=== PATIENT | female | born 1960 | race Two or more races ===

== ENCOUNTER 2019-10-20 07:58 | Outpatient (CLI) | payer OTHER ==
[~2019-10-20 07:58] MED LIST: ANTIVERT25 M1 PO; CEFADROXIL500 MG PO; DIOVAN HCT 320/1 TAB; EFFEXOR XR75 MG; GLUMETZA1000 MG; SYNTHROID175 MCG
== END 2019-10-20 08:15 | disposition home or self-care (01) ==
LOC: LAB 07:58
PROVIDERS: ATTEND Internal Medicine Hematology & Oncology
DX: M06.09 Rheumatoid arthritis without rheumatoid factor, multiple sites (principal); R76.0 Raised antibody titer; R68.89 Other general symptoms and signs; I11.9 Hypertensive heart disease without heart failure; E78.00 Pure hypercholesterolemia, unspecified; E03.8 Other specified hypothyroidism; R31.29 Other microscopic hematuria; D50.8 Other iron deficiency anemias; D68.8 Other specified coagulation defects; D68.0 Von Willebrand disease; D50.0 Iron deficiency anemia secondary to blood loss (chronic); D51.1 Vitamin B12 deficiency anemia due to selective vitamin B12 malabsorption with proteinuria; D51.0 Vitamin B12 deficiency anemia due to intrinsic factor deficiency; C73 Malignant neoplasm of thyroid gland; E08.65 Diabetes mellitus due to underlying condition with hyperglycemia; J39.0 Retropharyngeal and parapharyngeal abscess; R92.0 Mammographic microcalcification found on diagnostic imaging of breast; Z12.31 Encounter for screening mammogram for malignant neoplasm of breast; R97.8 Other abnormal tumor markers; R94.5 Abnormal results of liver function studies

== ENCOUNTER 2019-10-20 11:41 | Outpatient (CLI) | payer OTHER | END 2019-10-20 11:54 | disposition home or self-care (01) | LOC: MAMO-SONO 11:41 | PROVIDERS: ATTEND Internal Medicine Hematology & Oncology | DX: Z12.31 Encounter for screening mammogram for malignant neoplasm of breast (principal); D50.0 Iron deficiency anemia secondary to blood loss (chronic); D51.0 Vitamin B12 deficiency anemia due to intrinsic factor deficiency; D51.1 Vitamin B12 deficiency anemia due to selective vitamin B12 malabsorption with proteinuria; C73 Malignant neoplasm of thyroid gland; E08.65 Diabetes mellitus due to underlying condition with hyperglycemia; I10 Essential (primary) hypertension; J39.8 Other specified diseases of upper respiratory tract; R92.0 Mammographic microcalcification found on diagnostic imaging of breast; R97.8 Other abnormal tumor markers; R94.5 Abnormal results of liver function studies; M15.8 Other polyosteoarthritis ==

== ENCOUNTER 2020-02-07 09:11 | Outpatient (CLI) | payer OTHER | END 2020-02-07 09:20 | disposition home or self-care (01) | LOC: LAB 09:11 | PROVIDERS: ATTEND Internal Medicine Hematology & Oncology | DX: C73 Malignant neoplasm of thyroid gland (principal); E89.0 Postprocedural hypothyroidism ==

== ENCOUNTER 2020-03-14 13:10 | Outpatient (CLI) | payer OTHER | END 2020-03-14 13:15 | disposition home or self-care (01) | LOC: NUCLEAR 13:10 | PROVIDERS: ATTEND Internal Medicine Sports Medicine | DX: G30.8 Other Alzheimer's disease (principal); F02.80 Dementia in other diseases classified elsewhere, unspecified severity, without behavioral disturbance, psychotic disturbance, mood disturbance, and anxiety | CPT/HCPCS: 78803; A9557 ==

== ENCOUNTER 2022-02-04 08:37 | Outpatient (CLI) | payer OTHER | END 2022-02-04 08:38 | disposition home or self-care (01) | LOC: LAB 08:37 | PROVIDERS: ATTEND Internal Medicine Sports Medicine | DX: C73 Malignant neoplasm of thyroid gland (principal); E03.9 Hypothyroidism, unspecified; E89.0 Postprocedural hypothyroidism; E78.2 Mixed hyperlipidemia; E78.5 Hyperlipidemia, unspecified ==

== ENCOUNTER 2024-11-25 09:00 | Day surgery (SDC) | payer OTHER ==
[2024-11-18 08:30] VITALS: BP 127/76
[2024-11-18 08:48] LABS: BASO % 0.6 % (0.1-1.2); EOS # 0.03 (0.04-0.54); EOS % 0.4 % (0.7-7.0); LYMPH # 1.23 (1.18-3.74); LYMPH % 17.0 % (19.3-53.1); MEAN PLATELET VOLUME 10.30 fl (9.4-12.4); MONO # 0.42 (0.24-0.82); MONO % 5.8 % (4.7-12.5); NEUT # 5.47 (1.56-6.13); NEUT % 75.8 % (34.0-71.1); RED CELL DISTRIBUTION WIDTH 11.9 % (11.6-14.4)
[2024-11-18 08:59] LABS: URINE APPEARANCE Clear; URINE BILIRRUBIN Negative (NEGATIVE); URINE BLOOD Negative; URINE COLOR Yellow; URINE GLUCOSE Negative (NEGATIVE); URINE KETONE Negative (NEGATIVE); URINE LEUKOCYTE Trace; URINE NITRATE Negative; URINE PROTEIN Negative (NEGATIVE); URINE UROBILINOGEN 0.2 E.U./dl
[2024-11-18 09:04] LABS: URINE BACTERIA 14.3 uL (0.0-1933); URINE EPITHELIAL CELLS 1.9 uL (0.0-38.8); URINE RBC 2.4 uL (0.0-20.8); URINE WBC 12.9 uL (0.0-23.2)
[2024-11-18 09:12] LABS: URINE CAST 0.00 uL (0.0-1.40)
[2024-11-18 09:30] LABS: INR 1.0
[2024-11-18 09:57] LABS: ALT/SGPT 27.0 U/L (12-78); AST/SGOT 18.0 U/L (15-37); BILIRUBIN TOTAL 0.83 mg/dL (0.3-1.2); BUN CREA RATIO 31.0 (7.0-25.0); CREATININE SERUM 0.54 mg/dL (0.55-1.02); GFR 113.66; GLOBULINA 3.1 G/DL (2.4-3.5); GLUCOSE FASTING 86.0 mg/dL (65-100); OSMOLALITY SERUM 288.0 MOSM/KG (275-295)
[~2024-11-25] VITALS: Ht 160 cm; Wt 95.3 kg
[~2024-11-25 09:00] MED LIST changes: +CYCLOBENZAPRINE; +IRBESARTAN300 MG; +LORAZEPAM1 MG; +PRAVASTATIN SOD20 MG; +[UNRECOGNIZED DRUG - OTHER]
[2024-11-25] MEDS ORDERED: CEFAZOLIN SODIUM 1,000 MG VIAL ONE (09:57)
[2024-11-25] MEDS ORDERED: SUGAMMADEX SODIUM 200 MG/2 ML VIAL IV ONE (13:25)
[2024-11-25] MEDS ORDERED: ONDANSETRON HCL 2 MG/ML VIAL IV ONE (14:05)
[2024-11-25] MEDS ORDERED: ONDANSETRON HCL 2 MG/ML VIAL ONE (14:08)
== END 2024-11-25 15:45 | disposition home or self-care (01) ==
LOC: CIR.AMB 09:00
PROVIDERS: ATTEND Orthopaedic Surgery
DX: M75.122 Complete rotator cuff tear or rupture of left shoulder, not specified as traumatic (principal); M75.22 Bicipital tendinitis, left shoulder; M24.112 Other articular cartilage disorders, left shoulder; Z88.6 Allergy status to analgesic agent; Z91.040 Latex allergy status